=== PATIENT | male | born 1995 | race African-American/Black ===

== ENCOUNTER 2017-01-01 01:13 | Emergency (ER) | payer SELFPAY ==
[2017-01-01 02:38] LABS: #Basophils 0.1 thou/uL (0.0-0.2); #Eosinphils 0.3 thou/uL (0.0-0.7); #Lymphocytes 2.6 thou/uL (1.20-3.40); #Monocytes 0.5 thou/uL (0.11-0.59); #Neutrophils 3.6 thou/uL (1.40-6.50); %Basophils 0.7 % (0.0-1.0); %Eosinophils 3.8 % (0.0-10.0); %Lymphocytes 37.1 % (28.0-48.0); Hematocrit 53.7 % (42.0-52.0); Mean Platelet Volume 7.5 fL (7.4-10.4)
[2017-01-01] MEDS ORDERED: Ondansetron HCl/PF 4 MG/2 ML Vial ONE (02:38)
[2017-01-01 02:49] LABS: Acetaminophen Less than 6.0 mcg/mL (10.0-30.0); Salicylate Less than 8.0 mg/dL (15.0-30.0)
[2017-01-01 02:51] LABS: ALT (SGPT) 11 U/L (8-55); AST (SGOT) 20 U/L (10-45); Alkaline Phosphatase 77 U/L (Less than 750); Anion Gap 15 mmol/L (10-20); BUN (Urea Nitrogen) 11 mg/dL (8.4-21.0); Bilirubin, Total 0.5 mg/dL (0.2-1.2); CK (CPK) 225 U/L (30-200); Calc. Creatinine Clearance 0 mL/min (70-130); Calcium 9.7 mg/dL (7.8-10.44); Carbon Dioxide 23 mmol/L (22-29); Chloride 103 mmol/L (98-107); Estimated GFR-MDRD Greater than 90; Lipase 7 U/L (8-78); Protein, Total 8.9 g/dL (6.0-8.3)
--- NOTE | 2017-01-01 09:12 | CT ---
PRELIMINARY REPORT/[facility]/EMERGENCY AFTER HOURS PROCEDURE: EXAM: CT Abdomen and Pelvis Without Intravenous Contrast EXAM DATE/TIME: Exam ordered 01/01/2017 1:49 AM CLINICAL HISTORY: 21 years old, male; Pain and signs and symptoms; Nausea and vomiting; Abdominal pain; Localized; Lef t lower quadrant (llq); Patient HX: Er 9; 21 yo male w/ no pmh here for abd pain (llq). 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 Sharp 10/10 pain. Denies radiation or urinary/bowel symptoms. Last food intake was 24 h rs ago, no one else has symptoms. Assoc n/v. TECHNIQUE: Axial computed tomography images of the abdomen and pelvis without intravenous contrast. Coronal reformatted images were created and reviewed. COMPARISON: No relevant prior studies available. FINDINGS: Lower thorax: No acute findings. ABDOMEN: Liver: Unremarkable. Gallbladder and bile ducts: Unremarkable. No calcified stones. No ductal dilation. Pancreas: Unremarkable. No ductal dilation. Spleen: Unremarkable. No splenomegaly. Adrenals: Unremarkable. No mass. Kidneys and ureters: Unremarkable. No obstructing stones. No hydronephrosis. Stomach and bowel: Unremarkable. No obstruction. No mucosal thickening. Appendix: Normal appendix. PELVIS: Bladder: Unremarkable. No stones. Reproductive: Unremarkable as visualized. ABDOMEN and PELVIS: Intraperitoneal space: Unremarkable. No free air. No significant fluid collection. Bones/joints: No acute fracture. No dislocation. Soft tissues: Unremarkable. Vasculature: Unremarkable. No abdominal aortic aneurysm. Lymph nodes: Unremarkable. No enlarged lymph nodes. IMPRESSION: No acute findings. Thank you for allowing us to participate in the care of your patient. Dictated and Authenticated by: Jose Petersen MD 01/01/2017 2:02 AM Central Time ([place] \T\ [place]) FINAL REPORT ABDOMEN CT WITHOUT CONTRAST PELVIC CT WITHOUT CONTRAST: Date: 01/01/17 HISTORY: Left lower quadrant pain x2 hours. Abdominal pain. COMPARISON: None. TECHNIQUE: Abdomen and pelvis CT are performed without contrast. Coronal reformatted images are submitted for i nterpretation. FINDINGS: This report is in agreement with the preliminary report by [facility]. No evidence of nephrolithiasis or o bstructive uropathy. Normal caliber appendix is noted. POS: [facility]
== END 2017-01-01 03:12 | disposition home or self-care (01) ==
LOC: ERS 01:13
DX: R10.32 Left lower quadrant pain (principal); R11.2 Nausea with vomiting, unspecified
CPT/HCPCS: 36415; 74176; 80053; 80307; 82550; 83690; 85025; 96361; 96374; J2405